=== PATIENT | female | born 1955 | race Caucasian/White ===

== ENCOUNTER → 2023-01-07 12:57 | Outpatient (BNVA) | payer MEDICARE, SELFPAY | PROVIDERS: PCP Family Medicine; Referring Provider Family Medicine; Visit Provider Nurse Practitioner Family | DX: L81.4 Other melanin hyperpigmentation (principal); Z71.89 Other specified counseling; L30.0 Nummular dermatitis; L85.3 Xerosis cutis; L82.1 Other seborrheic keratosis; L02.426 Furuncle of left lower limb | CPT/HCPCS: 99204 ==

== ENCOUNTER 2024-06-17 12:12 | Outpatient (CLI) | payer MEDICARE, SELFPAY ==
--- NOTE | 2024-06-17 12:14 | MM_ITS ---
WS: [id number] Bilateral screening 3D tomosynthesis digital mammogram, 06/17/2024 12:14 PM Clinical Data: SCREENING Comparison: None. Findings: No spiculated masses or clustered calcifications are seen. There are no secondary signs of carcinoma . The augmentation mammoplasty implants are intact. There is a small amount of implant material in th e posterior lateral aspect of the left breast. MM/MM scr BI tomosynthesis [id number] Impression: Negative bilateral mammogram with no prior exam for review. Augmentation mammoplasty implants bilaterally. Recommend annual screening mammograms. BIRADS: 2 - Benign. FOLLOW UP: 1 Year Follow-up DENSITY: The breasts are almost entirely fatty. The [employer] checker was used
== END 2024-06-17 12:13 | disposition home or self-care (01) ==
LOC: RAD 12:13
PROVIDERS: PCP Family Medicine; Visit Provider Family Medicine
DX: Z12.31 Encounter for screening mammogram for malignant neoplasm of breast (principal); Z98.82 Breast implant status
CPT/HCPCS: 77063; 77067

== ENCOUNTER → 2024-08-20 08:03 | Outpatient (BNVA) | payer MEDICARE, SELFPAY | PROVIDERS: PCP Family Medicine; Visit Provider Family Medicine | DX: Z13.6 Encounter for screening for cardiovascular disorders (principal); Z51.81 Encounter for therapeutic drug level monitoring; Z13.220 Encounter for screening for lipoid disorders; E55.9 Vitamin D deficiency, unspecified | CPT/HCPCS: 80053; 80061; 82306; 85025 ==

== ENCOUNTER → 2024-10-12 13:05 | Outpatient (BNVA) | payer MEDICARE, SELFPAY | PROVIDERS: PCP Family Medicine; Referring Provider Family Medicine; Visit Provider Dermatology | DX: H61.119 Acquired deformity of pinna, unspecified ear (principal); L57.8 Other skin changes due to chronic exposure to nonionizing radiation | CPT/HCPCS: 99213 ==

== ENCOUNTER → 2024-11-19 09:21 | Outpatient (BNVA) | payer MEDICARE, SELFPAY | PROVIDERS: PCP Family Medicine; Visit Provider Dermatology | DX: S01.312A Laceration without foreign body of left ear, initial encounter (principal); X58.XXXA Exposure to other specified factors, initial encounter | CPT/HCPCS: 13151 ==

== ENCOUNTER → 2025-04-28 14:12 | Outpatient (BNVA) | payer MEDICARE, SELFPAY | PROVIDERS: PCP Family Medicine; Visit Provider Dermatology | DX: L82.1 Other seborrheic keratosis (principal); L81.4 Other melanin hyperpigmentation; D48.5 Neoplasm of uncertain behavior of skin | CPT/HCPCS: 11102; 99213 ==